=== PATIENT | male | born 1955 | race Caucasian/White ===

== ENCOUNTER → 2020-07-12 12:43 | Outpatient (CLI) | payer MEDICAID, SELFPAY ==
--- NOTE | 2020-07-12 12:50 | CT_ITS ---
STUDY: CTA NECK WITH CONTRAST REASON FOR EXAM: Male, 65 years old. CAROTID STENOSIS, HX HEART STENTS, DIFFERENT BP ON EACH ARM RADIATION DOSAGE (If Supplied By Facility): CTDIvol = ( 28.28 ) mGy, DLP = ( 739.03 ) mGycm TECHNIQUE: CT angiography with multi-detector data acquisition was performed from the aortic arch to the skull base following intravenous administration of IV 100mL Isovue-[id number]. MIP images were reconstructed from the axial data set. Post-processing of the angiographic images was performed, with multiplanar reformation and 3D reconstruction. Individualized dose optimization techniques were used for this CT. COMPARISON: None. FINDINGS: Prior CABG. AORTIC ARCH: There is atherosclerotic calcific plaque formation of the aortic arch and great vessels arising from the aortic arch, without a hemodynamically significant stenosis. There is a normal origin of the brachiocephalic, left common carotid, and left subclavian arteries. RIGHT CAROTID ARTERIES: Normal right common carotid artery (CCA). Normal right common carotid bulb. There is moderate atherosclerotic plaque formation of the origin of the right internal carotid artery with an estimated stenosis of 50-69% stenosis. Normal visualized cervical portion of the right internal carotid artery. There is extensive atherosclerotic plaque formation of the origin of the right external carotid artery with an estimated stenosis of greater than 70%. LEFT CAROTID ARTERIES: Normal left common carotid artery (CCA). Normal left common carotid bulb. There is mild atherosclerotic plaque formation of the origin of the left internal carotid artery with less than 50% cross sectional diameter stenosis. Normal visualized cervical portion of the left internal carotid artery. There is extensive atherosclerotic plaque formation of the origin of the left external carotid artery with an estimated stenosis of greater than 70%. VERTEBRAL ARTERIES: Normal bilateral vertebral arteries. CT/CTA Neck W/WO Contrast IMPRESSION: Atherosclerotic plaque at the origin of the right internal carotid artery causing between 50 and 69% stenosis. High-grade stenosis at the origin of the right and left external carotid arteries. Electronically Signed: Demetrius Bernal MD at 14:26 EST , Service support ,
[2020-07-12 13:30] LABS: CREATININE FINGERSTICK 1.7 mg/dL (0.70-1.30)
== END ==
PROVIDERS: PCP Family Medicine; Visit Provider Surgery Vascular Surgery
DX: I65.23 Occlusion and stenosis of bilateral carotid arteries (principal); I77.1 Stricture of artery; Z95.828 Presence of other vascular implants and grafts
CPT/HCPCS: 70498; Q9967